=== PATIENT | female | born 1990 | race Caucasian/White ===

== ENCOUNTER 2018-04-12 05:47 | Emergency (ER) | payer OTHER ==
[~2018-04-12] VITALS: Ht 175.3 cm; Wt 127.0 kg
[~2018-04-12 05:47] MED LIST: CRANBERRY400 M1; FLEXERIL10 MG PO; METFORMIN HCL500 MG; NORCO 5-325 TA1 EACH PO; PRENATAL VITAM1 EACH PO
[2018-04-12] MEDS ORDERED: NORCO 5-325 TA1 EACH PO (10:27)
== END 2018-04-12 11:15 | disposition home or self-care (01) ==
LOC: ED 05:47
DX: N83.292 Other ovarian cyst, left side (principal); Z87.891 Personal history of nicotine dependence
CPT/HCPCS: 74177; 80053; 81001; 83690; 84703; 85025; 96374; 96375; 99284; J1170; J2405; Q9967

== ENCOUNTER 2024-12-01 06:40 | Emergency (ER) | payer OTHER ==
[~2024-12-01] VITALS: Ht 175.3 cm; Wt 152.0 kg
[2024-12-01] MEDS ORDERED: CLINPRO 5000113 GM (06:47)
[2024-12-01] MEDS ORDERED: SUMATRIPTAN SUC50 MG (06:47)
[2024-12-01 07:40] VITALS: BP 123/82
== END 2024-12-01 07:40 | disposition home or self-care (01) ==
LOC: ED 06:40
DX: S83.92XA Sprain of unspecified site of left knee, initial encounter (principal); E66.9 Obesity, unspecified; Z87.891 Personal history of nicotine dependence; Z79.899 Other long term (current) drug therapy; X58.XXXA Exposure to other specified factors, initial encounter; Y93.K1 Activity, walking an animal
CPT/HCPCS: 73560; 99283